=== PATIENT | male | born 1980 | race Caucasian/White ===

== ENCOUNTER 2019-09-17 07:51 | Outpatient (CLI) | payer BC ==
--- NOTE | 2019-09-17 10:59 | CT ---
CT ABDOMEN AND PELVIS WITH ORAL AND IV CONTRAST: Date: 09/17/19 HISTORY: Abdominal pain, diarrhea, rectal bleeding, right upper quadrant pain. FINDINGS: There are multiple lesions in the liver, the largest of which is in the left lobe of the liver measur ing about 5.0 cm, and the right lobe measuring about 1.7 cm. The demonstrate peripheral nodular enhan cement and are likely hemangiomas. Other lesions are too small to characterize. There are calcified g ranulomas in the spleen. The pancreas, adrenal glands, and kidneys are normal. No calcified gallstone s are seen. No free air, free fluid, or lymphadenopathy noted in the abdomen or pelvis. The small bowel loops are not abnormally dilated. A normal appearing appendix is present. There is a 1.0 x 1.5 cm lytic lesion in the right iliac bone. A small lytic lesion is also seen in the posterior aspect of the body of L2 vertebra on the left. IMPRESSION: 1. Probable liver hemangiomas. This should be evaluated with a MRI of the abdomen using the hemangio ma protocol. 2. Calcified granulomas in the spleen. 3. Lytic lesions in the right iliac bone and L2 vertebra. A pelvic MRI (bone protocol) with and with out IV contrast is recommended. POS: [facility]
== END 2019-09-17 07:52 | disposition home or self-care (01) ==
LOC: BICCT 07:51
PROVIDERS: ATTEND Internal Medicine Gastroenterology
DX: K62.5 Hemorrhage of anus and rectum (principal); R10.9 Unspecified abdominal pain; R19.7 Diarrhea, unspecified; L92.9 Granulomatous disorder of the skin and subcutaneous tissue, unspecified
CPT/HCPCS: 74177

== ENCOUNTER 2019-09-29 13:00 | Outpatient (CLI) | payer BC ==
--- NOTE | 2019-09-30 08:10 | MRI ---
EXAM: MRI of the abdomen without and with contrast COMPARISON: None HISTORY: Hemangiomas of the liver TECHNIQUE: Multiplanar multi sequence MR images were taken of the abdomen without and with IV contras t. FINDINGS: Liver: Normal signal without dropout on out of phase images. There are multiple lesions scattered th roughout the liver demonstrating high T2 signal measuring up to 4.7 cm in size. After contrast, these lesions have peripheral puddling and centripetal filling consistent with hemangiomas. Gallbladder: No filling defects or gallbladder wall thickening. Common bile duct: Normal caliber without filling defects Adrenal glands: Unremarkable. Kidneys: No hydronephrosis or focal renal lesions. No abnormal areas of enhancement. Spleen: Unremarkable. Pancreas: Unremarkable. No abnormal enhancement. Retroperitoneum: No enlarged lymph nodes Bones: No marrow signal abnormality. IMPRESSION: Multiple hepatic hemangiomas.
--- NOTE | 2019-09-30 11:35 | MRI ---
MRI PELVIS PERFORMED WITH AND WITHOUT CONTRAST ENHANCEMENT: Date: 09/29/19 HISTORY: Lytic appearing bone lesion right iliac crest noted on recent CT. COMPARISON: CT examination of 09/17/19. FINDINGS: The visualized intrapelvic contents appear unremarkable. No pelvic lymphadenopathy or mass. There is a T1 hyperintense lesion incidentally noted involving the left side L2 vertebral body. This was previously described on the CT study. The signal intensity would suggest that this is fat and mos t likely a small hemangioma. The right iliac crest lesion is predominantly T1 hypo and T2 hyperintense. It does show mainly periph eral enhancement. Margins are well defined. There is no associated soft tissue mass seen. IMPRESSION: 1. L2 vertebral body lesion has appearance most suggestive of hemangioma. 2. Lytic bone lesion involving the right iliac crest. Overall, the features on the MRI would be more suggestive of a benign entity. The possibility of a lytic neoplastic type process would be considere d less likely, but not definitively exclude. I would suggest consideration for a bone scan. A bone sc an would be helpful in establishing the presence of other lesions, which would greatly increase the c hange that this represents malignancy. A solitary lesion would be much more likely to be benign. Anot her consideration would be a 6 month follow-up CT of the pelvis to establish stability. This would pr obably be appropriate if patient has no suspicious clinical findings that would suggest neoplasm. Findings reviewed with Dr. Christian, who agrees. POS: [facility]
== END 2019-09-29 13:01 | disposition home or self-care (01) ==
LOC: SCSMRI 13:00
PROVIDERS: ATTEND Internal Medicine Gastroenterology
DX: R93.3 Abnormal findings on diagnostic imaging of other parts of digestive tract (principal); M89.9 Disorder of bone, unspecified
CPT/HCPCS: 72197; 74183

== ENCOUNTER 2019-10-20 09:01 | Outpatient (CLI) | payer BC ==
--- NOTE | 2019-10-20 14:08 | NM ---
WHOLE BODY BONE SCAN: HISTORY: Abnormal findings on diagnostic imaging with a pelvic lesion in the right iliac bone and L2 vertebra on CT of 09/17/2019 and MRI pelvis from 09/29/2019. RADIOPHARMACEUTICAL: Technetium 99m MDP 32.2 millicuries injected intravenously. FINDINGS: There is a focal area of mildly increased uptake in the posterior aspect of the left sixth rib. No ot her abnormal areas of tracer localization are seen, including in the regions of interest in the spine and pelvic bones noted on the MRI of 09/29/[address] scan of 09/17/2019. Tracer excretion thro ugh the kidneys is within normal limits. IMPRESSION: Small focal area of mildly increased uptake in the left sixth rib. This is a nonspecific finding and should be correlated with plain radiographs and clinical examination. POS: JUAN FRANCISCO
== END 2019-10-20 09:02 | disposition home or self-care (01) ==
LOC: NM 09:01
PROVIDERS: ATTEND Physician Assistant Medical
DX: K62.5 Hemorrhage of anus and rectum (principal); R10.9 Unspecified abdominal pain; R93.3 Abnormal findings on diagnostic imaging of other parts of digestive tract
CPT/HCPCS: 78306

== ENCOUNTER 2019-12-03 10:14 | Outpatient (CLI) | payer BC ==
--- NOTE | 2019-12-03 11:17 | MRI ---
MRI LUMBAR SPINE NONCONTRAST: HISTORY: Lumbar radiculopathy. Low back pain. COMPARISON: None. FINDINGS: Appropriate T1 marrow signal intensity of the lumbar vertebrae. Lumbar spine vertebral body height is maintained. No fracture. No significant STIR hyperintensity to suggest vertebral body edema or ligamentous injury. Appropriate signal intensity of the visualized paraspinal muscles. Appropriate signal intensity of th e visualized solid organs. Conus medullaris terminates at the upper aspect of L2. T12-L1:Adequate disc hydration. No significant central canal stenosis or significant neural foraminal narrowing. L1-L2:Adequate disc hydration. No significant central canal stenosis or significant neural foraminal narrowing. L2-L3:Adequate disc hydration. No significant central canal stenosis or significant neural foraminal narrowing. L3-L4:Adequate disc hydration. No significant canal stenosis or significant neural foraminal. L4-L5:Minimal disc desiccation without significant loss of disc space height. Minimal central and lef t subarticular disc bulge. No significant stenosis of the thecal sac. Disc material makes contact with the traversing left L5 nerve root without significant mass effect or obscuration. No significant narrowing of the right subarticular zone. Mild to moderate right and moderate left foraminal narrowing predominantly due to disc material. L5-S1:Adequate disc hydration. No significant loss of disc space height. Minimal broad-based disc bul ge makes contact with the thecal sac. No significant central canal stenosis. Mild bilateral neural foraminal narrowing. Coronal images of the sacrum demonstrate possible partial lumbarization of the right aspect of S1. Th e sacral neural foramina are patent. Appropriate marrow signal intensity of the visualized sacrum and hips. IMPRESSION: 1. No significant central canal stenosis or significant neural foraminal narrowing. 2. Minimal narrowing of the left subarticular zone at L5 4-L5. Disc material does contact the tiffanie ing left L5 nerve root without significant mass effect and obscuration. Transcribed Date/Time: 12/03/2019 11:44 AM
== END 2019-12-03 10:15 | disposition home or self-care (01) ==
LOC: SCSRAD 10:14
PROVIDERS: ATTEND Orthopaedic Surgery
DX: M54.5 Low back pain (principal); M48.061 Spinal stenosis, lumbar region without neurogenic claudication
CPT/HCPCS: 72148

== ENCOUNTER 2020-11-25 13:10 | Emergency (ER) | payer BC ==
[2020-11-25 14:08] LABS: #Monocytes 0.2 thou/uL (0.11-0.59); #Neutrophils 4.4 thou/uL (1.40-6.50); %Eosinophils 0.1 % (0.0-10.0); %Lymphocytes 17.8 % (21.0-51.0); %Monocytes 3.6 % (0.0-10.0); %Neutrophils 78.4 % (42.0-75.0); Hemoglobin 15.5 g/dL (14.0-18.0); Mean Corpuscular HGB CONC 35.6 g/dL (32.0-36.0); Mean Corpuscular Hemoglobin 31.3 pg (27.0-31.0); Mean Corpuscular Volume 88.1 fL (78.0-98.0); Mean Platelet Volume 7.8 fL (7.4-10.4); Platelet Count 133 thou/uL (130-400); Red Blood Cell (RBC) Count 4.94 mill/uL (4.70-6.10); White Blood Cell (WBC) Count 5.6 thou/uL (4.8-10.8)
[2020-11-25 14:29] LABS: ALT (SGPT) 20 U/L (8-55); AST (SGOT) 29 U/L (5-34); Albumin 3.9 g/dL (3.5-5.0); Alkaline Phosphatase 60 U/L (40-110); Anion Gap 15 mmol/L (10-20); BUN (Urea Nitrogen) 10 mg/dL (8.9-20.6); Bilirubin, Total 0.5 mg/dL (0.2-1.2); Calc. Creatinine Clearance 0 mL/min (70-130); Calcium 8.5 mg/dL (7.8-10.44); Carbon Dioxide 23 mmol/L (22-29); Chloride 101 mmol/L (98-107); Globulin 3.1 g/dL (2.4-3.5); Glucose 101 mg/dL (70-105); Potassium 3.7 mmol/L (3.5-5.1); Sodium 135 mmol/L (136-145)
--- NOTE | 2020-11-25 14:29 | RAD ---
RADIOGRAPH CHEST 1 VIEW: DATE: 11/25/2020 TIME: 2:21 PM HISTORY: 40-year-old COVID-19 positive male with dyspnea and fever COMPARISON: none FINDINGS: Mild, faint, small ill-defined pulmonary densities scattered, including lateral aspect of right midlu ng zone, right medial base, left perihilar midlung zone, and to a lesser degree left base. No cardiomegaly. Lateral costophrenic angles are sharp. No pneumothorax. IMPRESSION: Mild-moderate bilateral infiltrates: Evidence for COVID-19 pneumonia
[2020-11-25] MEDS ORDERED: Ondansetron PF 4 MG/2 ML Vial ONE (15:24)
[2020-11-25] MEDS ORDERED: Dexamethasone 4 mg/ml Vial ONE (15:24)
[2020-11-25] MEDS ORDERED: Albuterol 200 PUFF (6.7GM INHALER) ONE (15:34)
== END 2020-11-25 16:29 | disposition home or self-care (01) ==
LOC: ERS 13:10
DX: U07.1 COVID-19 (principal)
CPT/HCPCS: 36415; 71045; 80053; 83880; 84484; 85025; 85379; 93005; 96374; 96375; J1100; J2405

== ENCOUNTER 2020-11-26 14:48 | Inpatient (IN) | payer BC ==
[2020-11-26 15:29] LABS: #Basophils 0.2 thou/uL (0.0-0.2); #Lymphocytes 1.3 thou/uL (1.20-3.40); #Monocytes 0.4 thou/uL (0.11-0.59); #Neutrophils 6.8 thou/uL (1.40-6.50); %Basophils 2.1 % (0.0-1.0); %Eosinophils 0.2 % (0.0-10.0); %Lymphocytes 14.5 % (21.0-51.0); %Monocytes 4.9 % (0.0-10.0); %Neutrophils 78.4 % (42.0-75.0); Hemoglobin 14.9 g/dL (14.0-18.0); Mean Corpuscular HGB CONC 34.5 g/dL (32.0-36.0); Mean Corpuscular Hemoglobin 30.6 pg (27.0-31.0); Mean Corpuscular Volume 88.5 fL (78.0-98.0); Mean Platelet Volume 7.9 fL (7.4-10.4); Platelet Count 181 thou/uL (130-400); Red Blood Cell (RBC) Count 4.86 mill/uL (4.70-6.10); White Blood Cell (WBC) Count 8.6 thou/uL (4.8-10.8)
--- NOTE | 2020-11-26 15:35 | RAD ---
XR Chest 1 View Portable HISTORY: Dyspnea Covid19 positive COMPARISON: 11/25/2020 FINDINGS: The heart size normal. Patchy bilateral infiltrates with lower zone dominance demonstrate m ild interval worsening on the right. No pneumothoraces or large effusions are seen. IMPRESSION: Findings are consistent with Covid 19 pneumonia.
[2020-11-26] MEDS ORDERED: Azithromycin 500 MG VIAL ONE (15:49)
[2020-11-26] MEDS ORDERED: Dexamethasone 10 MG/ML VIAL ONE (15:49)
[2020-11-26 15:53] LABS: ALT (SGPT) 25 U/L (8-55); AST (SGOT) 33 U/L (5-34); Albumin 3.9 g/dL (3.5-5.0); Alkaline Phosphatase 55 U/L (40-110); Anion Gap 15 mmol/L (10-20); BUN (Urea Nitrogen) 12 mg/dL (8.9-20.6); Bilirubin, Total 0.4 mg/dL (0.2-1.2); Calc. Creatinine Clearance 0 mL/min (70-130); Calcium 8.5 mg/dL (7.8-10.44); Carbon Dioxide 25 mmol/L (22-29); Chloride 103 mmol/L (98-107); Globulin 2.8 g/dL (2.4-3.5); Glucose 102 mg/dL (70-105); Potassium 3.7 mmol/L (3.5-5.1); Protein, Total 6.7 g/dL (6.0-8.3); Sodium 139 mmol/L (136-145)
--- NOTE | 2020-11-26 18:30 | HP ---
PRIMARY CARE PHYSICIAN: Dr. Rob. CHIEF COMPLAINT: My oxygen level was going low. HISTORY OF PRESENT ILLNESS: Mr. Toney is a pleasant 40-year-old gentleman who says that he began having fever and feeling tired about the before last, and then he started having fever and cough. He also noted some diarrhea as well. He went and had a COVID-19 screen done, which was positive. At that time, his oxygen level was normal and he was given a prescription for Decadron and azithromycin and discharged. He says that he was monitoring his oxygen level at home and noticed that at times his oxygen saturations would go down as low as 78, and then the night before admission, he says it stayed as low as 78 and 81 for over an hour and this was concerning for him and as a result, he came to the emergency room. He also notes some pain in the left side of his chest when he breathes, shortness of breath both at rest and on exertion, and he also notes an occasional muscle aches and the diarrhea. He denies any chichi leg pain per se and no other symptoms. He was seen in the ER and a chest x-ray was done showing findings consistent with COVID pneumonia. A D-dimer was done, it was only slightly elevated at 0.45. He was placed on supplemental oxygen and is currently feeling much improved. He was given a dose of IV Decadron 10 mg in the ER as well as IV azithromycin. REVIEW OF SYSTEMS: All systems were reviewed and are negative except for that mentioned in the history of present illness. PAST MEDICAL HISTORY: The patient denies any current medical problems. PAST SURGICAL HISTORY: Negative. ALLERGIES: HE SAYS HE IS ALLERGIC TO SOME TYPE OF SINUS MEDICINE STARTS WITH THE D, BUT HE CANNOT REMEMBER THE NAME. HE HAS TEXTED OUT TO HIS TO TRY TO FIND OUT. SOCIAL HISTORY: He says he drinks about three beers a night. Denies any smoking. He is and has two children, aged 11 and 10. FAMILY HISTORY: He said his father had some type of cardiac issues, but he is not really sure what they were and his mother, he says he has not seen her in years and does not know her history. CURRENT MEDICATIONS: He says he had a prescription that he never picked up, which was he believes was Decadron at the pharmacy and an inhaler. PHYSICAL EXAMINATION: GENERAL: He is alert and oriented. He appears to be in no acute distress. He is well developed and well nourished. VITAL SIGNS: Blood pressure was 107/75, heart rate 80, respiratory rate of 26, and temperature is 99.4 at the highest. HEENT: Pupils are equal, round, and reactive to light. Extraocular muscles are intact. His sclerae anicteric. NECK: No adenopathy. No bruits. LUNGS: He has significant rales throughout both lung kulkarni all the way up to the apices. There is no wheezing or rhonchi. CARDIOVASCULAR: He has a normal S1 and S2. There is no S3 or S4. No murmurs, clicks, or rubs. ABDOMEN: Obese. It is soft, nontender, nondistended. Positive for bowel sounds. No rebound or guarding. EXTREMITIES: There is no calf tenderness. No joint effusions. He has palpable dorsalis pedis pulses bilaterally. No lesions. SKIN AND INTEGUMENT: There are no skin changes. No rash. He did have palpable dorsalis pedis pulses bilaterally. Feet were warm and dry. LABORATORY DATA: The D-dimer was 0.45. White blood cell count 8.6, hemoglobin 14.9, hematocrit is 43.1, platelet count was 181. Sodium 139, potassium 3.7, chloride is 103, CO2 is 25, BUN of 12, creatinine 1.03, glucose is 102, and natriuretic peptide was 42.6. Chest x-ray by my reading, normal heart size and he has a poor inspiratory effort as well and patchy bilateral infiltrates. ASSESSMENT: This is a 40-year-old gentleman who presents with acute respiratory failure with hypoxemia due to COVID-19 pneumonia. He is hypoxic and his start of symptoms was about 8 days ago. He will be admitted and he is within the time window for potentially receiving remdesivir if it is available. I have consented him for the emergency use authorization of this medication. He is aware of the potential, renal, and hepatic adverse effects of this medication and he has consented to its use. We will also place him on Decadron, supplemental oxygen and deep venous thrombosis prophylaxis and DuoNebs as needed and we will also be monitoring his inflammatory markers. Job ID: [id number]
[2020-11-26] MEDS ORDERED: hydrALAZINE 20 MG/ML VIAL SLOW IVP PRN (19:01)
[2020-11-26] MEDS ORDERED: Acetaminophen 325 MG TAB PO PRN (19:01)
[2020-11-26] MEDS ORDERED: Ondansetron ODT 4 MG TAB PO PRN (19:01)
[2020-11-26] MEDS ORDERED: Ondansetron PF 4 MG/2 ML Vial IVP PRN (19:01)
[2020-11-26] MEDS ORDERED: Albuterol 200 PUFF (6.7GM INHALER) INH PRN (19:12)
[2020-11-26] MEDS: Famotidine 20 MG TAB PO SCH (20:03)
[2020-11-26] MEDS ORDERED: REMDESIVIR (EUA) 200 MG in Sodium Chloride 0.9% 250 ML 210 ML IV SCH (21:00)
[2020-11-26 22:34] VITALS: BMI 32.6
[2020-11-27 07:13] LABS: #Lymphocytes 0.8 thou/uL (1.20-3.40); #Monocytes 0.4 thou/uL (0.11-0.59); #Neutrophils 7.9 thou/uL (1.40-6.50); %Eosinophils 0.1 % (0.0-10.0); %Lymphocytes 9.1 % (21.0-51.0); %Monocytes 4.1 % (0.0-10.0); %Neutrophils 86.7 % (42.0-75.0); Hemoglobin 14.4 g/dL (14.0-18.0); Mean Corpuscular HGB CONC 34.5 g/dL (32.0-36.0); Mean Corpuscular Volume 89.9 fL (78.0-98.0); Platelet Count 202 thou/uL (130-400); RBC Distribution Width 11.2 % (11.5-14.5); Red Blood Cell (RBC) Count 4.63 mill/uL (4.70-6.10); White Blood Cell (WBC) Count 9.1 thou/uL (4.8-10.8)
[2020-11-27 07:43] LABS: Anion Gap 14 mmol/L (10-20); BUN (Urea Nitrogen) 13 mg/dL (8.9-20.6); CRP (Inflammatory) 4.81 mg/dL (= or < 0.5); Calc. Creatinine Clearance 151 mL/min (70-130); Calcium 8.6 mg/dL (7.8-10.44); Carbon Dioxide 24 mmol/L (22-29); Chloride 106 mmol/L (98-107); Glucose 107 mg/dL (70-105); Potassium 4.2 mmol/L (3.5-5.1); Sodium 140 mmol/L (136-145)
[2020-11-27] MEDS: Enoxaparin Sodium 40 MG/0.4 ML SYRINGE SC SCH (08:49)
[2020-11-27] MEDS: Famotidine 20 MG TAB PO SCH ×2 (08:49→20:17)
[2020-11-27] MEDS: Dexamethasone 4 mg/ml Vial SLOW IVP SCH (08:49)
--- NOTE | 2020-11-27 11:50 | PDOC.HOSPP ---
- Subjective Encounter Date: 11/27/20 Encounter Time: 10:10 Subjective: Patient feels that he is not getting enough oxygen. He is not getting any better. He looks somewhat in mild distress but not toxic looking. His last sat 93% with 2 L oxygen. His blood pressure normotensive. - Objective Vital Signs & Weight: Vital Signs (12 hours) Temp Pulse Resp BP Pulse Ox 11/27/20 08:00 93 L 11/27/20 07:58 98.6 F 76 20 122/66 93 L 11/27/20 05:33 98.6 F 92 18 108/67 95 11/27/20 00:01 98.4 F 74 16 105/57 L 95 Weight Weight 215 lb I&O: 11/26/20 11/27/20 11/28/20 06:59 06:59 06:59 Intake Total 730 Balance 730 Result Diagrams: 11/27/20 06:15 11/27/20 06:15 Hospitalist ROS - Medication Medications: Active Medications Generic Name Dose Route Start Last Admin Trade Name Faheem PRN Reason Stop Dose Admin Dexamethasone 6 mg 11/27/20 09:00 11/27/20 08:49 Dexamethasone 4 Mg/Ml Vial SLOW IVP 6 mg DAILY NICO Administration Enoxaparin Sodium 40 mg 11/27/20 09:00 11/27/20 08:49 Enoxaparin Sodium 40 Mg/0.4 Ml Syringe SC Not Given 0900 NICO Famotidine 20 mg 11/26/20 21:00 11/27/20 08:49 Famotidine 20 Mg Tab PO 20 mg BID NICO Administration - Exam General Appearance: NAD, awake alert Eye: PERRL ENT: normocephalic atraumatic Neck: supple Respiratory: normal chest expansion Gastrointestinal: soft, normal bowel sounds Neurological: cranial nerve grossly intact, no focal deficits Psychiatric: normal affect, normal behavior, A&O x 3 Hosp A/P - Plan COVID-19 positive test (U07.1, COVID-19) with Acute Pneumonia (J12.89, Other viral pneumonia) (If respiratory failure or sepsis present, add as separate assessment) Acute hypoxic respiratory failure secondary to Covid pneumonia Hypoxia Symptoms onset roughly 9 days ago -Continue with the Decadron vitamin C and zinc -Starting him on remdesivir Lovenox for DVT prophylaxis Regular diet Full code
[2020-11-27] MEDS ORDERED: Melatonin 3 MG TAB PO PRN (11:55)
[2020-11-27] MEDS: Guaifenesin DM 100-10/5 ML UDCUP PO SCH ×3 (12:54→20:21)
[2020-11-27] MEDS: REMDESIVIR (EUA) 100 MG in Sodium Chloride 0.9% 250 ML 230 ML IV SCH (21:18)
[2020-11-28] MEDS: Guaifenesin DM 100-10/5 ML UDCUP PO SCH ×6 (00:32→21:31)
[2020-11-28] MEDS: Dexamethasone 4 mg/ml Vial SLOW IVP SCH (08:01)
[2020-11-28] MEDS: Enoxaparin Sodium 40 MG/0.4 ML SYRINGE SC SCH (08:02)
[2020-11-28] MEDS: Famotidine 20 MG TAB PO SCH ×2 (08:02→21:32)
--- NOTE | 2020-11-28 10:39 | PDOC.HOSPP ---
- Subjective Encounter Date: 11/28/20 Encounter Time: 10:37 Subjective: Patient reports having improvement with sob on exertion yesterday afternoon. He was able to walk to the bathroom without feeling like he had "ran a marathon". Overnight and this morning however he has started feeling sob with exertion again, though still better than when he initially presented. He denies a cough and has not had any chest pain. Reports having diarrhea since he was admitted but today he had a solid well-formed stool for the first time. Denies any blood in the stool or black colored stool. Tolerating PO intake. No n/v. Denies any urinary symptoms. All other review of systems are negative. - Objective Vital Signs & Weight: Vital Signs (12 hours) Temp Pulse Resp BP Pulse Ox 11/28/20 09:48 98.3 F 66 20 108/70 96 11/28/20 05:28 97.9 F 58 L 16 102/68 95 11/28/20 00:47 55 L 16 102/65 96 Weight Weight 215 lb I&O: 11/27/20 11/28/20 11/29/20 06:59 06:59 06:59 Intake Total 730 Balance 730 Result Diagrams: 11/27/20 06:15 11/27/20 06:15 Hospitalist ROS - Medication Medications: Active Medications Generic Name Dose Route Start Last Admin Trade Name Faheem PRN Reason Stop Dose Admin Acetaminophen 650 mg 11/26/20 19:01 11/27/20 20:17 Acetaminophen 325 Mg Tab PO 650 mg Q4H PRN Administration Headache/Fever/Mild Pain (1-3) Dexamethasone 6 mg 11/27/20 09:00 11/28/20 08:01 Dexamethasone 4 Mg/Ml Vial SLOW IVP 6 mg DAILY NICO Administration Enoxaparin Sodium 40 mg 11/27/20 09:00 11/28/20 08:02 Enoxaparin Sodium 40 Mg/0.4 Ml Syringe SC 40 mg 09 NICO Administration Famotidine 20 mg 11/26/20 21:00 11/28/20 08:02 Famotidine 20 Mg Tab PO 20 mg BID NICO Administration Guaifenesin/Dextromethorphan 15 ml 11/27/20 13:00 11/28/20 08:02 Guaifenesin Dm 100-10/5 Ml Udcup PO 15 ml Q4HR NICO Administration Remdesivir 100 mg/ Sodium 250 mls @ 250 mls/hr 11/27/20 21:00 11/27/20 21:18 Chloride IV 11/30/20 21:59 250 mls 2100 NICO Administration Ondansetron HCl 4 mg 11/26/20 19:01 11/27/20 15:12 Ondansetron Odt 4 Mg Tab PO 4 mg Q6H PRN Administration Nausea/Vomiting - Exam General Appearance: NAD, awake alert General - other findings: 96% on 3L by NC Eye: PERRL, anicteric sclera ENT: normocephalic atraumatic, no oropharyngeal lesions Neck: supple, no lymphadenopathy Heart: RRR, normal peripheral pulses Respiratory: CTAB, no wheezes, no rales, normal chest expansion Respiratory - other findings: crackles at the right lung base Gastrointestinal: soft, non-tender, non-distended, normal bowel sounds Extremities: no edema Skin: normal turgor, no lesions, no rashes Neurological: cranial nerve grossly intact, normal sensation to touch, no weakness Musculoskeletal: normal tone, normal strength, no muscle wasting Psychiatric: normal affect, normal behavior, A&O x 3
[2020-11-28] MEDS ORDERED: Benzonatate 100 MG CAP PO PRN (10:42)
[2020-11-28] MEDS ORDERED: Zinc Sulfate 220 MG CAP PO SCH (10:45)
[2020-11-28] MEDS ORDERED: Ascorbic Acid 500 mg Chewable Tablet PO SCH (10:45)
[2020-11-28 11:22] LABS: #Lymphocytes 0.8 thou/uL (1.20-3.40); #Monocytes 0.5 thou/uL (0.11-0.59); #Neutrophils 6.3 thou/uL (1.40-6.50); %Basophils 0.6 % (0.0-1.0); %Eosinophils 0.2 % (0.0-10.0); %Lymphocytes 10.2 % (21.0-51.0); %Monocytes 6.8 % (0.0-10.0); %Neutrophils 82.2 % (42.0-75.0); Hemoglobin 14.6 g/dL (14.0-18.0); Mean Corpuscular HGB CONC 34.9 g/dL (32.0-36.0); Mean Corpuscular Hemoglobin 31.1 pg (27.0-31.0); Mean Corpuscular Volume 89.3 fL (78.0-98.0); Mean Platelet Volume 7.7 fL (7.4-10.4); Platelet Count 248 thou/uL (130-400); RBC Distribution Width 11.1 % (11.5-14.5); Red Blood Cell (RBC) Count 4.68 mill/uL (4.70-6.10); White Blood Cell (WBC) Count 7.7 thou/uL (4.8-10.8)
[2020-11-28 11:49] LABS: ALT (SGPT) 20 U/L (8-55); AST (SGOT) 23 U/L (5-34); Albumin 3.6 g/dL (3.5-5.0); Alkaline Phosphatase 51 U/L (40-110); Anion Gap 13 mmol/L (10-20); BUN (Urea Nitrogen) 19 mg/dL (8.9-20.6); Bilirubin, Total 0.5 mg/dL (0.2-1.2); Calc. Creatinine Clearance 140 mL/min (70-130); Calcium 8.6 mg/dL (7.8-10.44); Carbon Dioxide 25 mmol/L (22-29); Chloride 103 mmol/L (98-107); Glucose 112 mg/dL (70-105); Magnesium 2.2 mg/dL (1.6-2.6); Protein, Total 6.6 g/dL (6.0-8.3); Sodium 137 mmol/L (136-145)
--- NOTE | 2020-11-28 16:59 | RAD ---
PORTABLE CHEST: History: Covid positive. Comparison: 11-26-20 FINDINGS: Bilateral lung infiltrates are again noted. These are similar to the prior exam. Some of the right lo wer lobe parenchymal changes appear slightly improved. IMPRESSION: Bilateral lung infiltrates, fairly similar to the prior exam. Some minimal improvement to the right l ower lobe changes. POS: NEDA
[2020-11-28] MEDS ORDERED: Lidocaine 2% Viscous Solution 10 ML, Aluminum & Magnesium Hydroxide 30 ML SSW SCH (17:00)
[2020-11-28] MEDS: REMDESIVIR (EUA) 100 MG in Sodium Chloride 0.9% 250 ML 230 ML IV SCH (21:29)
[2020-11-29] MEDS: Guaifenesin DM 100-10/5 ML UDCUP PO SCH ×6 (01:37→20:13)
[2020-11-29 06:48] LABS: #Basophils 0.1 thou/uL (0.0-0.2); #Lymphocytes 1.8 thou/uL (1.20-3.40); #Monocytes 0.7 thou/uL (0.11-0.59); #Neutrophils 3.7 thou/uL (1.40-6.50); %Basophils 1.1 % (0.0-1.0); %Eosinophils 0.7 % (0.0-10.0); %Lymphocytes 28.6 % (21.0-51.0); %Monocytes 10.4 % (0.0-10.0); %Neutrophils 59.3 % (42.0-75.0); Hemoglobin 14.5 g/dL (14.0-18.0); Mean Corpuscular HGB CONC 34.1 g/dL (32.0-36.0); Mean Corpuscular Hemoglobin 30.4 pg (27.0-31.0); Mean Corpuscular Volume 89.2 fL (78.0-98.0); Mean Platelet Volume 7.6 fL (7.4-10.4); Platelet Count 273 thou/uL (130-400); RBC Distribution Width 11.1 % (11.5-14.5); Red Blood Cell (RBC) Count 4.77 mill/uL (4.70-6.10); White Blood Cell (WBC) Count 6.3 thou/uL (4.8-10.8)
[2020-11-29 07:09] LABS: Lactic Acid 0.8 mmol/L (0.5-2.2)
[2020-11-29 07:10] LABS: Anion Gap 14 mmol/L (10-20); BUN (Urea Nitrogen) 19 mg/dL (8.9-20.6); CRP (Inflammatory) 3.28 mg/dL (= or < 0.5); Calc. Creatinine Clearance 160 mL/min (70-130); Calcium 8.7 mg/dL (7.8-10.44); Carbon Dioxide 23 mmol/L (22-29); Chloride 106 mmol/L (98-107); Glucose 91 mg/dL (70-105); Magnesium 2.3 mg/dL (1.6-2.6); Potassium 3.9 mmol/L (3.5-5.1); Sodium 139 mmol/L (136-145)
[2020-11-29] MEDS: Dexamethasone 4 mg/ml Vial SLOW IVP SCH (08:31)
[2020-11-29] MEDS: Ascorbic Acid 500 mg Chewable Tablet PO SCH (08:31)
[2020-11-29] MEDS: Zinc Sulfate 220 MG CAP PO SCH (08:32)
[2020-11-29] MEDS: Enoxaparin Sodium 40 MG/0.4 ML SYRINGE SC SCH (08:33)
--- NOTE | 2020-11-29 08:39 | PDOC.HOSPP ---
- Subjective Encounter Date: 11/29/20 Encounter Time: 11:45 Subjective: Patient still requiring 2L NC but feeling much better. Getting up without severe SOB on O2. Cough improved. No chest pain. - Objective Vital Signs & Weight: Vital Signs (12 hours) Temp Pulse Resp BP Pulse Ox 11/29/20 05:22 97.0 F L 60 20 104/65 97 11/29/20 01:26 97.8 F 60 20 96/63 91 L 11/28/20 22:04 98.3 F 69 18 95 11/28/20 21:30 98.3 F 69 18 105/65 95 Weight Weight 215 lb I&O: 11/28/20 11/29/20 11/30/20 06:59 06:59 06:59 Intake Total 800 Balance 800 Result Diagrams: 11/29/20 06:22 11/29/20 06:22 Hospitalist ROS - Review of Systems Constitutional: denies: fever, chills Respiratory: reports: cough, SOB with excertion. denies: shortness of breath Cardiovascular: denies: chest pain, palpitations Gastrointestinal: denies: nausea, vomiting, abdominal pain - Medication Medications: Active Medications Generic Name Dose Route Start Last Admin Trade Name Freq PRN Reason Stop Dose Admin Acetaminophen 650 mg 11/26/20 19:01 11/27/20 20:17 Acetaminophen 325 Mg Tab PO 650 mg Q4H PRN Administration Headache/Fever/Mild Pain (1-3) Dexamethasone 6 mg 11/27/20 09:00 11/28/20 08:01 Dexamethasone 4 Mg/Ml Vial SLOW IVP 6 mg DAILY NICO Administration Enoxaparin Sodium 40 mg 11/27/20 09:00 11/28/20 08:02 Enoxaparin Sodium 40 Mg/0.4 Ml Syringe SC 40 mg 09 NICO Administration Famotidine 20 mg 11/26/20 21:00 11/28/20 21:32 Famotidine 20 Mg Tab PO 20 mg BID NICO Administration Guaifenesin/Dextromethorphan 15 ml 11/27/20 13:00 11/29/20 04:27 Guaifenesin Dm 100-10/5 Ml Udcup PO Not Given Q4HR NICO Remdesivir 100 mg/ Sodium 250 mls @ 250 mls/hr 11/27/20 21:00 01/10/21 21:29 Chloride IV 11/30/20 21:59 250 mls 2100 NICO Administration Ondansetron HCl 4 mg 11/26/20 19:01 11/27/20 15:12 Ondansetron Odt 4 Mg Tab PO 4 mg Q6H PRN Administration Nausea/Vomiting Sodium Chloride 10 ml 11/28/20 21:00 11/28/20 21:38 Flush - Normal Saline 10 Ml Syringe IVF 10 ml Q12HR NICO Administration - Exam General Appearance: NAD, awake alert ENT: moist mucosa Heart: RRR, no murmur, no gallops, no rubs Respiratory: no wheezes, no ronchi, no tachypnea Respiratory - other findings: bilateral crackles, good air movement Gastrointestinal: soft, non-tender, non-distended, normal bowel sounds Extremities: no edema Psychiatric: normal affect, normal behavior, A&O x 3 Hosp A/P (1) Pneumonia due to COVID-19 virus Code(s): U07.1 - COVID-19; J12.82 - PNEUMONIA DUE TO CORONAVIRUS DISEASE 2019 Status: Acute (2) Respiratory failure with hypoxia Code(s): J96.91 - RESPIRATORY FAILURE, UNSPECIFIED WITH HYPOXIA Status: Acute (3) Obesity (BMI 30.0-34.9) Code(s): E66.9 - OBESITY, UNSPECIFIED Status: Chronic - Plan Patient on Decadron, Remdesivir, Vitamin D, Vitamin C, and Zinc. Sating well on 2-3L NC CXR maybe improved a little bit Possibly home in the next couple days if further improvement or if can arrange home O2. DVT Proph: Lovenox GI Proph: Pepcid
[2020-11-29] MEDS: Famotidine 20 MG TAB PO SCH ×2 (08:42→20:13)
[2020-11-29] MEDS: Cholecalciferol 1,000 UNITS (25 MCG) TAB PO SCH (12:52)
[2020-11-29] MEDS: REMDESIVIR (EUA) 100 MG in Sodium Chloride 0.9% 250 ML 230 ML IV SCH (20:14)
[2020-11-30] MEDS: Guaifenesin DM 100-10/5 ML UDCUP PO SCH ×6 (03:07→20:40)
[2020-11-30 06:29] LABS: #Eosinphils 0.1 thou/uL (0.0-0.7); #Lymphocytes 2.2 thou/uL (1.20-3.40); #Monocytes 0.7 thou/uL (0.11-0.59); #Neutrophils 4.5 thou/uL (1.40-6.50); %Basophils 0.2 % (0.0-1.0); %Eosinophils 1.7 % (0.0-10.0); %Lymphocytes 29.3 % (21.0-51.0); %Monocytes 8.7 % (0.0-10.0); %Neutrophils 60.1 % (42.0-75.0); Hemoglobin 14.9 g/dL (14.0-18.0); Mean Corpuscular HGB CONC 33.8 g/dL (32.0-36.0); Mean Corpuscular Hemoglobin 30.3 pg (27.0-31.0); Mean Corpuscular Volume 89.6 fL (78.0-98.0); Mean Platelet Volume 7.4 fL (7.4-10.4); Platelet Count 332 thou/uL (130-400); RBC Distribution Width 11.1 % (11.5-14.5); Red Blood Cell (RBC) Count 4.92 mill/uL (4.70-6.10); White Blood Cell (WBC) Count 7.4 thou/uL (4.8-10.8)
--- NOTE | 2020-11-30 07:33 | PDOC.HOSPP ---
- Subjective Encounter Date: 11/30/20 Encounter Time: 11:00 Subjective: Patient feeling better. Ambulated to bathroom without oxygen and felt fine, but lips appear a bit cyanotic to me. Resolved after put oxygen back on. No cough or chest pain. - Objective Vital Signs & Weight: Vital Signs (12 hours) Temp Pulse Resp BP Pulse Ox 11/30/20 06:06 98.1 F 67 18 106/60 94 L 11/30/20 00:00 98.1 F 58 L 20 117/72 95 11/29/20 20:00 98.1 F 61 18 109/71 93 L Weight Weight 215 lb I&O: 11/29/20 11/30/20 12/01/20 06:59 06:59 06:59 Intake Total 800 Balance 800 Result Diagrams: 11/30/20 05:46 11/29/20 06:22 Hospitalist ROS - Review of Systems Constitutional: denies: fever, chills Respiratory: denies: cough, shortness of breath, SOB with excertion Cardiovascular: denies: chest pain, palpitations Gastrointestinal: denies: nausea, vomiting, abdominal pain - Medication Medications: Active Medications Generic Name Dose Route Start Last Admin Trade Name Freq PRN Reason Stop Dose Admin Acetaminophen 650 mg 11/26/20 19:01 11/27/20 20:17 Acetaminophen 325 Mg Tab PO 650 mg Q4H PRN Administration Headache/Fever/Mild Pain (1-3) Ascorbic Acid 1,000 mg 11/29/20 09:00 11/29/20 08:31 Ascorbic Acid 500 Mg Chewable Tablet PO 1,000 mg DAILY NICO Administration Cholecalciferol 1,000 units 11/29/20 09:00 11/29/20 12:52 Cholecalciferol 1,000 Units (25 Mcg) Tab PO 1,000 units DAILY NICO Administration Dexamethasone 6 mg 11/27/20 09:00 11/29/20 08:31 Dexamethasone 4 Mg/Ml Vial SLOW IVP 6 mg DAILY NICO Administration Enoxaparin Sodium 40 mg 11/27/20 09:00 11/29/20 08:33 Enoxaparin Sodium 40 Mg/0.4 Ml Syringe SC 40 mg 0900 NICO Administration Famotidine 20 mg 11/26/20 21:00 11/29/20 20:13 Famotidine 20 Mg Tab PO 20 mg BID NICO Administration Guaifenesin/Dextromethorphan 15 ml 11/27/20 13:00 11/30/20 05:51 Guaifenesin Dm 100-10/5 Ml Udcup PO Not Given Q4HR NICO Remdesivir 100 mg/ Sodium 250 mls @ 250 mls/hr 11/27/20 21:00 11/29/20 20:14 Chloride IV 11/30/20 21:59 250 mls 2100 NICO Administration Ondansetron HCl 4 mg 11/26/20 19:01 11/27/20 15:12 Ondansetron Odt 4 Mg Tab PO 4 mg Q6H PRN Administration Nausea/Vomiting Sodium Chloride 10 ml 11/28/20 21:00 11/29/20 20:14 Flush - Normal Saline 10 Ml Syringe IVF 10 ml Q12HR NICO Administration Zinc Sulfate 220 mg 11/29/20 09:00 11/29/20 08:32 Zinc Sulfate 220 Mg Cap PO 220 mg DAILY NICO Administration - Exam General Appearance: NAD, awake alert ENT: moist mucosa ENT - other findings: mildly cyanotic lips, improved with putting on the oxygen Heart: RRR, no murmur, no gallops, no rubs Respiratory: CTAB, no wheezes, no rales, no ronchi Gastrointestinal: soft, non-tender, non-distended, normal bowel sounds Psychiatric: normal affect, normal behavior, A&O x 3 Hosp A/P (1) Pneumonia due to COVID-19 virus Code(s): U07.1 - COVID-19; J12.82 - PNEUMONIA DUE TO CORONAVIRUS DISEASE 2019 Status: Acute (2) Respiratory failure with hypoxia Code(s): J96.91 - RESPIRATORY FAILURE, UNSPECIFIED WITH HYPOXIA Status: Acute (3) Obesity (BMI 30.0-34.9) Code(s): E66.9 - OBESITY, UNSPECIFIED Status: Chronic - Plan Patient on Decadron, Remdesivir, Vitamin D, Vitamin C, and Zinc. Sating well on 3L NC, still requiring oxygen. CXR maybe improved a little bit Possibly home in the next couple days if further improvement or if can arrange home O2 (though no concentrators available in town currently). DVT Proph: Lovenox GI Proph: Pepcid
[2020-11-30] MEDS: Ascorbic Acid 500 mg Chewable Tablet PO SCH (09:28)
[2020-11-30] MEDS: Cholecalciferol 1,000 UNITS (25 MCG) TAB PO SCH (09:28)
[2020-11-30] MEDS: Famotidine 20 MG TAB PO SCH ×2 (09:28→20:17)
[2020-11-30] MEDS: Dexamethasone 4 mg/ml Vial SLOW IVP SCH (09:28)
[2020-11-30] MEDS: Zinc Sulfate 220 MG CAP PO SCH (09:28)
[2020-11-30] MEDS: Enoxaparin Sodium 40 MG/0.4 ML SYRINGE SC SCH (09:28)
[2020-11-30] MEDS: REMDESIVIR (EUA) 100 MG in Sodium Chloride 0.9% 250 ML 230 ML IV SCH (22:03)
[2020-12-01] MEDS: Guaifenesin DM 100-10/5 ML UDCUP PO SCH ×4 (00:12→14:07)
[2020-12-01] MEDS: Ascorbic Acid 500 mg Chewable Tablet PO SCH (07:41)
[2020-12-01] MEDS: Enoxaparin Sodium 40 MG/0.4 ML SYRINGE SC SCH (07:41)
[2020-12-01] MEDS: Dexamethasone 4 mg/ml Vial SLOW IVP SCH (07:41)
[2020-12-01] MEDS: Zinc Sulfate 220 MG CAP PO SCH (07:41)
[2020-12-01] MEDS: Famotidine 20 MG TAB PO SCH (07:41)
[2020-12-01] MEDS: Cholecalciferol 1,000 UNITS (25 MCG) TAB PO SCH (07:41)
[2020-12-01] MEDS ORDERED: HYDROcodone/Acetaminophen 5/325 mg Tablet PO PRN (09:10)
[2020-12-01] MEDS ORDERED: Zolpidem Tartrate 5 MG TAB PO PRN (09:10)
[2020-12-01] MEDS ORDERED: Loperamide HCl 2 MG CAP PO PRN (09:10)
[2020-12-01] MEDS ORDERED: Cepastat Lozenges 1 LOZ PO PRN (09:10)
[2020-12-01] MEDS ORDERED: Senokot S 8.6-50 MG TAB PO PRN (09:10)
[2020-12-01] MEDS ORDERED: Bisacodyl 5 MG TAB PO PRN (09:10)
[2020-12-01] MEDS ORDERED: Calcium Carbonate 500 MG ChewTAB PO PRN (09:10)
[2020-12-01] MEDS ORDERED: Loratadine 10 MG TAB PO PRN (09:10)
[2020-12-01] MEDS ORDERED: Sodium Chloride 0.65% Nasal 44 ML BOT EA NARE PRN (09:10)
--- NOTE | 2020-12-01 11:37 | PDOC.HOSPP ---
- Subjective Encounter Date: 12/01/20 Encounter Time: 07:40 Subjective: Patient is doing much better, he has finished remdesivir, he wants to go home today but he is on 3 L nasal cannula oxygen - Objective Vital Signs & Weight: Vital Signs (12 hours) Temp Pulse Resp BP Pulse Ox 12/01/20 08:00 94 L 12/01/20 07:50 97.8 F 77 18 106/74 94 L 12/01/20 06:00 98.1 F 57 L 18 108/63 93 L 12/01/20 00:29 97.9 F 58 L 18 114/58 L 93 L Weight Weight 215 lb I&O: 11/30/20 12/01/20 12/02/20 06:59 06:59 06:59 Intake Total 1440 Balance 1440 Result Diagrams: 11/30/20 05:46 11/29/20 06:22 Hospitalist ROS - Review of Systems ENT: denies: ear pain, ear discharge, nose pain, nose discharge, nose congestion, mouth pain, mouth swelling, throat pain, throat swelling, other Respiratory: denies: cough, dry, shortness of breath, hemoptysis, SOB with excertion, pleuritic pain, sputum, wheezing, other Cardiovascular: denies: chest pain, palpitations, orthopnea, paroxysmal noc. dys pnea, edema, light headedness, other Gastrointestinal: denies: nausea, vomiting, abdominal pain, diarrhea, constipation, melena, hematochezia, other Genitourinary: denies: dysuria, frequency, incontinence, hematuria, retention, other Musculoskeletal: denies: neck pain, shoulder pain, arm pain, back pain, hand pain, leg pain, foot pain, other - Medication Medications: Active Medications Generic Name Dose Route Start Last Admin Trade Name Freq PRN Reason Stop Dose Admin Acetaminophen 650 mg 11/26/20 19:01 11/27/20 20:17 Acetaminophen 325 Mg Tab PO 650 mg Q4H PRN Administration Headache/Fever/Mild Pain (1-3) Ascorbic Acid 1,000 mg 11/29/20 09:00 12/01/20 07:41 Ascorbic Acid 500 Mg Chewable Tablet PO 1,000 mg DAILY NICO Administration Cholecalciferol 1,000 units 11/29/20 09:00 12/01/20 07:41 Cholecalciferol 1,000 Units (25 Mcg) Tab PO 1,000 units DAILY NICO Administration Dexamethasone 6 mg 11/27/20 09:00 12/01/20 07:41 Dexamethasone 4 Mg/Ml Vial SLOW IVP 6 mg DAILY NICO Administration Enoxaparin Sodium 40 mg 11/27/20 09:00 12/01/20 07:41 Enoxaparin Sodium 40 Mg/0.4 Ml Syringe SC 40 mg 0900 NICO Administration Famotidine 20 mg 11/26/20 21:00 12/01/20 07:41 Famotidine 20 Mg Tab PO 20 mg BID NICO Administration Guaifenesin/Dextromethorphan 15 ml 11/27/20 13:00 12/01/20 07:42 Guaifenesin Dm 100-10/5 Ml Udcup PO Not Given Q4HR NICO Ondansetron HCl 4 mg 11/26/20 19:01 11/27/20 15:12 Ondansetron Odt 4 Mg Tab PO 4 mg Q6H PRN Administration Nausea/Vomiting Sodium Chloride 10 ml 11/28/20 21:00 12/01/20 07:42 Flush - Normal Saline 10 Ml Syringe IVF 10 ml Q12HR NICO Administration Zinc Sulfate 220 mg 11/29/20 09:00 12/01/20 07:41 Zinc Sulfate 220 Mg Cap PO 220 mg DAILY NICO Administration - Exam General Appearance: NAD, awake alert Eye: PERRL, anicteric sclera ENT: normocephalic atraumatic, no oropharyngeal lesions Neck: supple, symmetric, no JVD, no thyromegaly Heart: RRR, no murmur, no gallops, no rubs Respiratory: no wheezes, no rales, no ronchi Gastrointestinal: soft, non-tender, non-distended, normal bowel sounds Extremities: no cyanosis, no clubbing, no edema Skin: normal turgor, no lesions Neurological: no focal deficits Musculoskeletal: normal tone, normal strength Psychiatric: normal affect, normal behavior Hosp A/P (1) Pneumonia due to COVID-19 virus Code(s): U07.1 - COVID-19; J12.82 - PNEUMONIA DUE TO CORONAVIRUS DISEASE 2019 Status: Acute (2) Respiratory failure with hypoxia Code(s): J96.91 - RESPIRATORY FAILURE, UNSPECIFIED WITH HYPOXIA Status: Acute Qualifiers: Chronicity: acute Qualified Code(s): J96.01 - Acute respiratory failure with hypoxia (3) Obesity (BMI 30.0-34.9) Code(s): E66.9 - OBESITY, UNSPECIFIED Status: Chronic - Plan old records reviewed/req Patient is overall medically stable for discharge Before discharge we will do oxygen challenge test to see if he needs oxygen upon discharge If he needs oxygen then case aide needs to arrange for oxygen
--- NOTE | 2020-12-01 13:21 | PDOC.DS.DS ---
Provider - Provider Date of Admission: 11/26/20 16:06 Date of Discharge: 12/01/20 Admitting Provider: Marc Cain MD Primary Care Physician: NO PCP PROVIDER Course - Hospital Course Hospital Course: 40-year-old male who was admitted on November 26 with Covid pneumonia, he had acute hypoxic respiratory failure due to Covid pneumonia, after admission patient was treated with remdesivir, he has completed remdesivir therapy, he was also given dexamethasone, and vitamin supplementation, we are finishing off dexamethasone for another 5 days, patient will continue vitamin supplementation, By the time of discharge patient was requiring oxygen so with help of vending manager we are arranging oxygen, once oxygen arrangement completed and will consider discharging home with home oxygen. Otherwise patient is medically stable. Patient seen and examined bedside today. Resuscitation Status: 11/26/20 17:41 Resuscitation Status Routine Resuscitation Status: FULL: Full Resuscitation - Labs Lab Results: 11/30/20 05:46 11/29/20 06:22 Abnormal Lab Results - Last 48 hrs 11/30/20 05:46: C-Reactive Protein 1.79 H 11/30/20 05:46: RDW 11.1 L, Monocytes # 0.7 H 12/01/20 06:41: C-Reactive Protein 1.17 H Microbiology - Entire Visit 11/26/20 16:17 Venous blood - Right Arm Blood Culture - Preliminary NO GROWTH AT 48 HOURS 11/26/20 16:17 Venous blood - Left Hand Blood Culture - Preliminary NO GROWTH AT 48 HOURS - Physical Exam Vitals: Vital Signs (12 hours) Temp Pulse Resp BP Pulse Ox 12/01/20 11:40 97.8 F 66 18 106/66 95 12/01/20 08:00 94 L 12/01/20 07:50 97.8 F 77 18 106/74 94 L 12/01/20 06:00 98.1 F 57 L 18 108/63 93 L Weight Weight 215 lb Physical Exam: The patient was seen and examined on the day of discharge. Problem - Problem (1) Pneumonia due to COVID-19 virus Code(s): U07.1 - COVID-19; J12.82 - PNEUMONIA DUE TO CORONAVIRUS DISEASE 2019 Status: Acute (2) Respiratory failure with hypoxia Code(s): J96.91 - RESPIRATORY FAILURE, UNSPECIFIED WITH HYPOXIA Status: Acute Qualifiers: Chronicity: acute Qualified Code(s): J96.01 - Acute respiratory failure with hypoxia (3) Obesity (BMI 30.0-34.9) Code(s): E66.9 - OBESITY, UNSPECIFIED Status: Chronic Plan - Discharge Medications Prescriptions: Albuterol Sulfate [Proventil Hfa] 2 puff INH Q6HR PRN #1 aer PRN Reason: Sob &/Or Wheezing Dexamethasone 6 mg PO DAILY #5 tablet Famotidine [Pepcid] 20 mg PO BID #10 tab Benzonatate [Tessalon] 100 mg PO TIDPRN PRN #30 cap PRN Reason: Cough Ascorbic Acid [Vitamin C] 1,000 mg PO DAILY #30 tab Cholecalciferol [Vitamin D3] 1,000 units PO DAILY #14 tab Zinc Sulfate 220 mg PO DAILY #14 cap Home Medications: Medication Instructions Recorded Confirmed Type Albuterol Sulfate [Proventil Hfa] 2 puff INH Q6HR PRN #1 aer 12/01/20 Rx Ascorbic Acid [Vitamin C] 1,000 mg PO DAILY #30 tab 12/01/20 Rx Benzonatate [Tessalon] 100 mg PO TIDPRN PRN #30 cap 12/01/20 Rx Cholecalciferol [Vitamin D3] 1,000 units PO DAILY #14 tab 12/01/20 Rx Dexamethasone 6 mg PO DAILY #5 tablet 12/01/20 Rx Famotidine [Pepcid] 20 mg PO BID #10 tab 12/01/20 Rx Zinc Sulfate 220 mg PO DAILY #14 cap 12/01/20 Rx Allergies: doxycycline Allergy (Verified 11/26/20 23:29) - Discharge Instructions Activity:: Activity as Tolerated Nourishment:: Heart Healthy Diet Therapies:: Not Applicable Equipment/Supplies:: Oxygen IV Therapy:: Not Applicable - Follow up Plan Referrals: PROVIDER,NO PCP [Primary Care Provider] - Disposition: HOME Quality - Care Measures CORE MEASURES:: N/A
[2020-12-01 16:06] VITALS: BP 108/60; TEMP 98.4
--- NOTE | 2020-12-04 10:05 | EKG ---
Test Reason : Blood Pressure : / mmHG Vent. Rate : 075 BPM Atrial Rate : 075 BPM P-R Int : 160 ms QRS Dur : 096 ms QT Int : 386 ms P-R-T Axes : 010 -18 037 degrees QTc Int : 431 ms Normal sinus rhythm Normal ECG Confirmed by BAL DENTON, CLIFFORD Becerra ([id number]), story editor ZULY GONZALES ([id number]) on 12/04/2020 10:04:57 AM Referred By: Confirmed By:CLIFFORD SELBY MD
== END 2020-12-01 15:54 | disposition home or self-care (01) | DRG 177 ==
LOC: ERS 14:48 → T4-A 16:06
PROVIDERS: ADMIT Internal Medicine; ATTEND Internal Medicine
DX: U07.1 COVID-19 (principal); J12.82 Pneumonia due to coronavirus disease 2019; J96.01 Acute respiratory failure with hypoxia; E66.9 Obesity, unspecified; Z68.30 Body mass index [BMI] 30.0-30.9, adult
CPT/HCPCS: 36415; 71045; 80048; 80053; 82728; 83605; 83735; 83880; 84484; 85025; 85379; 85652; 86140; 87040; 93005; 96365; 96366; 96374; 96375; J0456; J1100; J1650; J2405; J7050; Q0162